=== PATIENT | female | born 1965 | race Two or more races ===

== ENCOUNTER 2018-10-07 20:03 | Emergency (ER) | payer MEDICAID ==
[~2018-10-07] VITALS: Ht 152.4 cm; Wt 74.8 kg
[2018-10-07 20:51] VITALS: BP 143/77
[2018-10-07] MEDS ORDERED: LIDOCAINE 1% HCL (LOCAL ANESTH.) INJ 20ML MDV IJ ONE (22:45)
[2018-10-07] MEDS ORDERED: BACITRACIN TOP OINT 1 UD PKG TOP ONE (22:45)
[2018-10-07] MEDS ORDERED: TETANUS-DIPTH-ACEL PERTUSSIS 0.5ML SYRG IM ONE (23:30)
[2018-10-07] MEDS ORDERED: IBUPROFEN 800 MG TAB PO ONE (23:30)
== END 2018-10-07 23:48 | disposition home or self-care (01) ==
LOC: ER 20:07
DX: S61.216A Laceration without foreign body of right little finger without damage to nail, initial encounter (principal); S61.214A Laceration without foreign body of right ring finger without damage to nail, initial encounter; X58.XXXA Exposure to other specified factors, initial encounter; Y93.89 Activity, other specified; Y92.89 Other specified places as the place of occurrence of the external cause; Y99.8 Other external cause status
CPT/HCPCS: 12001; 73140; 90471; 90715; 99283; J2001